=== PATIENT | male | born 1990 | race Caucasian/White ===

== ENCOUNTER 2018-03-10 18:32 | Emergency (ER) | payer OTHER ==
[2018-03-10] MEDS ORDERED: IBUPROFEN 600 MG TAB PO ONE (19:09)
--- NOTE | 2018-03-10 19:09 | EDPHY ---
H & P Time Seen by Provider: 03/10/18 18:35 HPI/ROS: Chief complaint. Head injury HPI. Patient is 27-year-old male, here by EMS, was skiing at [place] and had dropped his glove on a previous run. He was trying to get down easy run to retrieve drop glove. The easy run was closing ended [place] the [place]. He had a bump and fell struck the left side of his face. He was wearing a helmet. Possible brief loss of consciousness. 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 He is transported by ambulance. Now he has no headache. His vision is okay. He has now neck pain. No chest pain or shortness of breath. He has an abrasion to the left cheek area. He has swelling to this thenar eminence of his left palm. No abdominal pain or injury to other arm or legs. He is completely conversational now and remembers the incident. ROS 10 systems were reviewed and negative with the exception of the elements mentioned in the history of present illness Past Medical/Surgical History: Asthma, attention deficit hyperactivity disorder, OCD Social History: Single, nonsmoker, no alcohol Smoking Status: Never smoked Physical Exam: General Appearance: Alert pleasant well-developed male mild distress vital signs are stable Eyes: Pupils equal and round no pallor or injection. ENT, no hemotympanum or Marlow sign. No oral pharyngeal trauma. Abrasion to the left cheek. Otherwise no bumps to the head Respiratory: There are no retractions, lungs are clear to auscultation. Cardiovascular: Regular rate and rhythm. Gastrointestinal: Abdomen is soft and nontender, no masses, bowel sounds normal. Neurological: Awake and alert, sensory and motor exams grossly normal. Skin: Warm and dry, no rashes. Musculoskeletal: Neck is supple nontender. No T, L, S spine tenderness Extremities symmetrical, full range of motion. Mild swelling to the thenar eminence left hand. Good range of motion of the thumb. No wrist tenderness Psychiatric: Patient is oriented X 3, there is no agitation. Constitutional: Initial Vital Signs Temperature (C) 36.7 C 03/10/18 18:56 Heart Rate 103 H 03/10/18 18:56 Respiratory Rate 16 03/10/18 18:56 Blood Pressure 151/90 H 01/05/19 18:56 O2 Sat (%) 99 03/10/18 18:56 O2 Delivery Mode Room Air Allergies/Adverse Reactions: No Known Drug Allergies Allergy (Verified 03/10/18 19:00) Home Medications: Medication Instructions Recorded Inderal 10mg (*) 03/10/18 Vyvanse 03/10/18 Wellbutrin Sr 03/10/18 Xanax 03/10/18 Medical Decision Making Procedures: Ibuprofen ED Course/Re-evaluation: Patient remains completely conversational without headache. No repetitive questioning. Oriented. Patient declines x-ray of his left hand. Patient and I discussed treatment plan including criteria for return importance of follow-up and further evaluation. He expresses understanding and agreement Differential Diagnosis: Patient has apparently had a concussion. He is completely neurologically intact without headache or visual change or repetitive questioning now. He is oriented and conversational. He does have some mild swelling to the left thenar eminence but no obvious evidence of fracture Departure - Departure Disposition: Home, Routine, Self-Care Clinical Impression: Concussion Qualifiers: Encounter type: initial encounter Loss of consciousness presence/duration: with LOC of 30 min or less Qualified Code(s): S06.0X1A - Concussion with loss of consciousness of 30 minutes or less, initial encounter Facial abrasion Qualifiers: Encounter type: initial encounter Qualified Code(s): S00.81XA - Abrasion of other part of head, initial encounter Hand contusion Qualifiers: Encounter type: initial encounter Laterality: left Qualified Code(s): S60.222A - Contusion of left hand, initial encounter Condition: Good Instructions: Concussion (ED) Additional Instructions: Easy activity. Ibuprofen 600 mg every 6 hr as needed for headache Ice to face and hands next 24 hr Antibiotic ointment to the abrasion on the left cheek twice daily. Return for worsening headache, confusion, vomiting. No activity that may result in head injury for 1 week. Re-evaluation of your hand in 3-4 days for continuing pain or swelling Referrals: NONE *PRIMARY CARE P,. [Primary Care Provider] - As per Instructions Mira Murray MD [Medical Doctor] - 3-4 days, if not improved
[2018-03-10 19:23] VITALS: BP 144/80
== END 2018-03-10 19:25 | disposition home or self-care (01) ==
DX: S06.0X1A Concussion with loss of consciousness of 30 minutes or less, initial encounter (principal); S00.81XA Abrasion of other part of head, initial encounter; S60.222A Contusion of left hand, initial encounter; J45.909 Unspecified asthma, uncomplicated; F90.9 Attention-deficit hyperactivity disorder, unspecified type; V00.321A Fall from snow-skis, initial encounter; Y93.23 Activity, snow (alpine) (downhill) skiing, snowboarding, sledding, tobogganing and snow tubing; Y92.838 Other recreation area as the place of occurrence of the external cause; Y99.9 Unspecified external cause status